=== PATIENT | male | born 1985 | race Two or more races ===

== ENCOUNTER 2021-07-23 08:24 | Emergency (ER) | payer SELFPAY ==
[2021-07-23] MEDS ORDERED: NORFLEX 100 MG100 MG PO (11:34)
[2021-07-23] MEDS ORDERED: IBUPROFEN600 MG PO (11:34)
== END 2021-07-23 11:39 | disposition home or self-care (01) ==
LOC: ER1 08:24
DX: S40.012A Contusion of left shoulder, initial encounter (principal); G89.29 Other chronic pain; F17.210 Nicotine dependence, cigarettes, uncomplicated; M54.9 Dorsalgia, unspecified; W01.0XXA Fall on same level from slipping, tripping and stumbling without subsequent striking against object, initial encounter
CPT/HCPCS: 72072; 72100; 73030; 96372; 99283; J1100; J1885